=== PATIENT | female | born 1985 | race Caucasian/White ===

== ENCOUNTER 2016-06-11 22:08 | Emergency (ER) | payer MEDICAID ==
[~2016-06-11] VITALS: Ht 157.5 cm; Wt 64.0 kg
[2016-06-11 22:50] VITALS: BP 109/81
--- NOTE | 2016-06-11 23:12 | NUR ---
PATIENT PRESENTS TO ED WITH RT EAR PAIN . PT STATES HAVING PAIN FOR 2 MONTHS . DENIES N/V/D; SKIN IS PINK/WARM/DRY; AAOX4 WITH EVEN AND STEADY GAIT; LUNGS CLEAR BL; HR EVEN AND REGULAR; PT DENIES ANY FEVER, CP, SOB, OR COUGH AT THIS TIME; PATIENT STATES PAIN OF 6/10 AT THIS TIME; VSS; PATIENT POSITIONED FOR COMFORT; HOB ELEVATED; BEDRAILS UP X2; BED DOWN. ER MD MADE AWARE OF PT STATUS.
--- NOTE | 2016-06-11 23:12 | NUR ---
PT TAKEN TO OF
--- NOTE | 2016-06-11 23:13 | NUR ---
Dr. Sims evaluating patient at bedside.
[2016-06-11 23:21] VITALS: BP 109/81
--- NOTE | 2016-06-11 23:21 | NUR ---
Patient discharged with v/s stable. Written and verbal after care instructions given and explained. Patient alert, oriented and verbalized understanding of instructions. Ambulatory with steady gait. All questions addressed prior to discharge. ID band removed. Patient advised to follow up with PMD. Rx of AUGMENTIN 875MG TABLET AND MEDROL 4MG TABLET given. Patient educated on indication of medication including possible reaction and side effects. Opportunity to ask questions provided and answered.
== END 2016-06-11 23:21 | disposition home or self-care (01) ==
LOC: MED 22:08
DX: H66.91 Otitis media, unspecified, right ear (principal); T70.0XXA Otitic barotrauma, initial encounter; X58.XXXA Exposure to other specified factors, initial encounter

== ENCOUNTER 2017-11-01 13:46 | Emergency (ER) | payer MEDICAID ==
[~2017-11-01] VITALS: Ht 160 cm; Wt 63.5 kg
[2017-11-01 13:55] VITALS: BP 108/63
--- NOTE | 2017-11-01 14:02 | NUR ---
PT AMBULATES TO BED 5
--- NOTE | 2017-11-01 14:04 | NUR ---
31/F BIB SELF C/O INTERMITENT LOWER ABD PAIN X 2DAYS . TYLENOL TAKEN 2 HOURS EXPORT ADMINISTRATOR. PMH: LYMPHOMA CANCER. DENIES N/V/D; SKIN IS PINK/WARM/DRY; AAOX4 WITH EVEN AND STEADY GAIT; LUNGS CLEAR BL; PT DENIES ANY FEVER, CP, SOB, OR COUGH AT THIS TIME; PATIENT STATES PAIN OF 8/10 AT THIS TIME. PATIENT POSITIONED FOR COMFORT; HOB ELEVATED; BEDRAILS UP X2; BED DOWN. ER MD MADE AWARE OF PT STATUS.
--- NOTE | 2017-11-01 15:13 | NUR ---
Patient being evaluated by DR CURRY at bedside.
[2017-11-01 15:25] LABS: BILIRUBIN,URINE NEGATIVE (NEGATIVE); BLOOD, URINE 1+ (NEGATIVE); COLOR,URINE YELLOW (YELLOW); LEUKOCYTE ESTERASE ,URINE 2+ (NEGATIVE); NITRITE, URINE NEGATIVE (NEGATIVE); UGLUCOSE NEGATIVE (NEGATIVE)
[2017-11-01 15:31] LABS: APPEARANCE,URINE SLIGHTLY CLOUDY (CLEAR)
[2017-11-01 15:37] LABS: RBC,URINE 11-20 (MOD) /HPF (0-5); WBC,URINE 16-25 (MOD) /HPF (0-5)
[2017-11-01 15:38] VITALS: BP 106/61
== END 2017-11-01 15:38 | disposition home or self-care (01) ==
LOC: MED 13:46
DX: R10.30 Lower abdominal pain, unspecified (principal); Z85.72 Personal history of non-Hodgkin lymphomas; Z91.041 Radiographic dye allergy status
CPT/HCPCS: 81001; 81025; 87086; 99284

== ENCOUNTER 2019-12-18 09:40 | Emergency (ER) | payer MEDICAID ==
[~2019-12-18] VITALS: Ht 154.9 cm; Wt 61.7 kg
[2019-12-18 09:47] VITALS: BP 129/83
--- NOTE | 2019-12-18 09:50 | NUR ---
DR. VASQUEZ EVALUATING PT AT BEDSIDE
[2019-12-18] MEDS ORDERED: diazePAM 5 MG TAB PO STA (09:53)
--- NOTE | 2019-12-18 10:00 | NUR ---
33/F c/o achy muscles in neck and mild throat discomfort with swallowing x 3 days. States unable to turn neck side to side. Has experienced similar symptoms in the past and was told by doctor that it is due to patient having too much stress. VSS. NAD. PMH: lymphoma in remission
--- NOTE | 2019-12-18 10:39 | NUR ---
DR. VASQUEZ SPEAKING WITH PT AT BEDSIDE
[2019-12-18 10:57] VITALS: BP 129/83
--- NOTE | 2019-12-18 10:57 | NUR ---
Patient discharged with v/s stable. Written and verbal after care instructions given and explained. Patient alert, oriented and verbalized understanding of instructions. Ambulatory with steady gait. All questions addressed prior to discharge. ID band removed. Patient advised to follow up with PMD. Rx of VALIUM given. Patient educated on indication of medication including possible reaction and side effects. Opportunity to ask questions provided and answered.
== END 2019-12-18 10:57 | disposition home or self-care (01) ==
LOC: MED 09:40
DX: M54.2 Cervicalgia (principal); C85.90 Non-Hodgkin lymphoma, unspecified, unspecified site
CPT/HCPCS: 99283

== ENCOUNTER 2020-04-30 19:14 | Emergency (ER) | payer MEDICAID ==
[~2020-04-30] VITALS: Ht 162.6 cm; Wt 66.2 kg
[2020-04-30 19:29] VITALS: BP 110/84
--- NOTE | 2020-04-30 19:30 | NUR ---
TO LOBBY A/W BED AMBULATORY
--- NOTE | 2020-04-30 22:18 | NUR ---
PT AMBULATED TO BED #2
--- NOTE | 2020-04-30 22:18 | NUR ---
TO BED 2 AMBULATORY WITH C/O NECK PAIN. PT STATES THIS IS THE 3RD TIME AND "THE DRS SAY ITS CAUSED BY STRESS". DENIES TRAUMA. GUARDED ROM NOTED. PAIN RATED 9/10 PMH : CANCER; LYMPHOMA ALLERGY: IV CONTRAST
[2020-04-30] MEDS ORDERED: KETOROLAC 60 MG/2 ML VIAL IM ONE (22:40)
[2020-04-30] MEDS ORDERED: diazePAM 5 MG TAB PO ONE (22:40)
[2020-04-30 23:10] VITALS: BP 110/84
--- NOTE | 2020-04-30 23:10 | NUR ---
Patient discharged with v/s stable. Written and verbal after care instructions given and explained. Patient alert, oriented and verbalized understanding of instructions. Ambulatory with steady gait. All questions addressed prior to discharge. ID band removed. Patient advised to follow up with PMD. Rx of CYCLOBENZAPRINE, TYLENOL given. Patient educated on indication of medication including possible reaction and side effects. Opportunity to ask questions provided and answered.
== END 2020-04-30 23:10 | disposition home or self-care (01) ==
LOC: MED 19:14
DX: R25.2 Cramp and spasm (principal); M54.2 Cervicalgia
CPT/HCPCS: 96372; 99283; J1885

== ENCOUNTER 2020-08-16 08:11 | Emergency (ER) | payer MEDICAID ==
[~2020-08-16] VITALS: Ht 157.5 cm; Wt 73.0 kg
[2020-08-16 08:13] VITALS: BP 120/70
[2020-08-16] MEDS ORDERED: KETOROLAC 60 MG/2 ML VIAL IM ONE (08:40)
[2020-08-16 09:12] VITALS: BP 120/70
== END 2020-08-16 09:15 | disposition home or self-care (01) ==
LOC: MED 08:11
DX: R51.9 Headache, unspecified (principal); Z85.72 Personal history of non-Hodgkin lymphomas
CPT/HCPCS: 96372; 99283; J1885

== ENCOUNTER 2022-02-15 20:29 | Emergency (ER) | payer MEDICAID ==
[~2022-02-15] VITALS: Ht 157.5 cm; Wt 63.5 kg
[2022-02-15 21:43] VITALS: BP 125/54
[2022-02-15] MEDS ORDERED: ACETAMINOPHEN 325 MG TAB PO ONE (22:00)
[2022-02-15] MEDS ORDERED: BENZ200C4 PO (23:54)
[2022-02-15] MEDS ORDERED: LID5T TP (23:54)
[2022-02-15] MEDS ORDERED: IBUP-2213 PO (23:54)
[2022-02-16 00:09] VITALS: BP 125/54
--- NOTE | 2022-02-16 00:09 | NUR ---
Patient discharged with v/s stable. Written and verbal after care instructions given and explained. Patient alert, oriented and verbalized understanding of instructions. Ambulatory with steady gait. All questions addressed prior to discharge. ID band removed. Patient advised to follow up with PMD. Rx of BENZONATATE, IBUPROFEN, LIDODERM given. Patient educated on indication of medication including possible reaction and side effects. Opportunity to ask questions provided and answered.
== END 2022-02-16 00:09 | disposition home or self-care (01) ==
LOC: MED 20:29
DX: J10.1 Influenza due to other identified influenza virus with other respiratory manifestations (principal); Z20.822 Contact with and (suspected) exposure to COVID-19
CPT/HCPCS: 99283

== ENCOUNTER 2022-10-22 16:44 | Emergency (ER) | payer MEDICAID ==
[~2022-10-22] VITALS: Ht 154.9 cm; Wt 68.7 kg
[~2022-10-22 16:44] MED LIST: BENZ200C4 PO; IBUP-2213 PO; LID5T TP
[2022-10-22 17:18] VITALS: BP 115/68; PULSE 82; RESP 20; TEMP 98.2; O2SAT 100
[2022-10-22] MEDS ORDERED: LIDOCAINE MPF 1% 10 MG/ML VIAL INJ ONE (19:05)
[2022-10-22 19:30] VITALS: BP 115/68; PULSE 82; RESP 20; TEMP 98.2; O2SAT 100
[2022-10-22] MEDS ORDERED: BACITRACIN OINT 500 UNITS/GM PKT TP ONE (19:45)
--- NOTE | 2022-10-22 20:10 | NUR ---
Patient discharged. Written and verbal after care instructions given and explained. Patient verbalized understanding. Ambulatory with steady gait. All questions addressed prior to discharge. Advised to follow up with PMD.
== END 2022-10-22 20:10 | disposition home or self-care (01) ==
LOC: MED 16:44
DX: S51.811A Laceration without foreign body of right forearm, initial encounter (principal); W26.8XXA Contact with other sharp object(s), not elsewhere classified, initial encounter; Y93.89 Activity, other specified; Y92.89 Other specified places as the place of occurrence of the external cause; Y99.8 Other external cause status
CPT/HCPCS: 12002; 99282; J2001

== ENCOUNTER 2022-10-24 09:58 | Emergency (ER) | payer MEDICAID ==
[~2022-10-24] VITALS: Ht 160 cm; Wt 68.0 kg
[2022-10-24 10:13] VITALS: BP 124/80; PULSE 100; RESP 20; TEMP 98.3; O2SAT 99
[2022-10-24] MEDS ORDERED: IBUP-2213 PO (10:16)
== END 2022-10-24 10:59 | disposition home or self-care (01) ==
LOC: MED 09:58
DX: S51.011D Laceration without foreign body of right elbow, subsequent encounter (principal); Z85.72 Personal history of non-Hodgkin lymphomas; Z79.899 Other long term (current) drug therapy; X58.XXXD Exposure to other specified factors, subsequent encounter
CPT/HCPCS: 99282

== ENCOUNTER 2022-10-30 18:07 | Emergency (ER) | payer MEDICAID ==
[~2022-10-30] VITALS: Ht 157.5 cm; Wt 69.9 kg
[2022-10-30 18:32] VITALS: BP 117/85; PULSE 78; RESP 16; TEMP 98.5; O2SAT 98
[2022-10-30 19:02] VITALS: BP 117/85; PULSE 78; RESP 16; TEMP 98.5; O2SAT 98
== END 2022-10-30 19:02 | disposition home or self-care (01) ==
LOC: MED 18:07
DX: S51.011D Laceration without foreign body of right elbow, subsequent encounter (principal); Z48.02 Encounter for removal of sutures; Z79.899 Other long term (current) drug therapy; Z79.1 Long term (current) use of non-steroidal anti-inflammatories (NSAID); X58.XXXD Exposure to other specified factors, subsequent encounter
CPT/HCPCS: 99281

== ENCOUNTER 2023-08-31 17:07 | Emergency (ER) | payer MEDICAID, OTHER ==
[~2023-08-31] VITALS: Ht 162.6 cm; Wt 68.5 kg
[2023-08-31 17:29] VITALS: BP 106/82; PULSE 87; RESP 16; TEMP 98.4; O2SAT 98
[2023-08-31] MEDS ORDERED: DICL20GE TP (19:42)
== END 2023-08-31 20:02 | disposition home or self-care (01) ==
LOC: MED 17:07
DX: M25.521 Pain in right elbow (principal); Z85.72 Personal history of non-Hodgkin lymphomas; Z79.1 Long term (current) use of non-steroidal anti-inflammatories (NSAID); Z79.899 Other long term (current) drug therapy
CPT/HCPCS: 73080; 99283

== ENCOUNTER 2023-10-12 01:35 | Inpatient (IN) | payer OTHER ==
[~2023-10-12] VITALS: Ht 162.6 cm; Wt 68.0 kg
[~2023-10-12 01:35] MED LIST changes: +DICL20GE TP
[2023-10-12 01:41] VITALS: BP 132/69; PULSE 69; RESP 20; TEMP 97.5
[2023-10-12 02:12] LABS: BASOPHILS # (AUTO) 0.1 K/uL (0.00-0.22); BASOPHILS % (AUTO) 0.5 % (0.0-2.0); EOSINOPHILS # (AUTO) 0.3 K/uL (0-0.4); HEMATOCRIT 37.8 % (36-48); HEMOGLOBIN 13.1 g/dL (12.0-16.0); LYMPHOCYTES % (AUTO) 19.7 % (20.5-51.1); MEAN CORPUSCULAR HEMOGLOBIN 30 pg (27-31); MEAN CORPUSCULAR HGB CONC 35 g/dL (33-37); MONOCYTES % (AUTO) 9.7 % (1.7-9.3); NEUTROPHILS # (AUTO) 6.7 K/uL (1.8-7.7); NEUTROPHILS % (AUTO) 67.1 % (42.2-75.2); PLATELET COUNT (AUTO) 261 K/uL (140-450); RED BLOOD CELL COUNT(AUTO) 4.44 MIL/uL (4.20-5.40); RED CELL DISTRIBUTION WIDTH 13.7 % (11.6-13.7); WHITE BLOOD COUNT (AUTO) 10.1 K/uL (4.8-10.8)
[2023-10-12 02:24] LABS: APPEARANCE,URINE CLEAR (CLEAR); BILIRUBIN,URINE NEGATIVE (NEGATIVE); BLOOD, URINE TRACE-I (NEGATIVE); COLOR,URINE YELLOW (YELLOW); LEUKOCYTE ESTERASE ,URINE 1+ (NEGATIVE); NITRITE, URINE NEGATIVE (NEGATIVE); PROTEIN,URINE NEGATIVE (NEGATIVE); UGLUCOSE NEGATIVE (NEGATIVE); UROBILINOGEN,URINE 0.2 EU/dL (0.2 - 1)
[2023-10-12 02:25] LABS: ANION GAP 11.8 (8-16); CALCIUM 9.1 mg/dL (8.5-10.1); CARBON DIOXIDE 25.6 mmol/L (21-32); CREATININE 0.7 mg/dL (0.6-1.3); POTASSIUM 3.4 mmol/L (3.5-5.1)
[2023-10-12 02:27] LABS: BACTERIA,URINE >30 (MANY) /HPF (None Seen)
[2023-10-12 02:28] LABS: MUCUS,URINE 1+ /LPF (None Seen)
[2023-10-12 02:30] LABS: ALBUMIN 3.7 g/dL (3.4-5.0); BILIRUBIN,DIRECT 0.1 mg/dL (0.0-0.3); TOTAL BILIRUBIN 0.4 mg/dL (0.0-1.0); TOTAL PROTEIN, SERUM 7.3 g/dL (6.4-8.2)
[2023-10-12] MEDS: KETOROLAC 60 MG/2 ML VIAL IM ONE (02:33)
[2023-10-12] MEDS ORDERED: cefTRIAXone 1,000 MG VIAL ONE (03:41)
[2023-10-12] MEDS: PIPERACILLIN/TAZOBACTAM 3.375 GM in DEXTROSE 5% 50 ML IV SCH (03:45)
[2023-10-12] MEDS ORDERED: ACETAMINOPHEN 325 MG TAB PO PRN (03:55)
[2023-10-12] MEDS ORDERED: LORazepam 1 MG TAB PO PRN (03:55)
[2023-10-12] MEDS ORDERED: ZOLPIDEM 5 MG TAB PO PRN (03:55)
[2023-10-12] MEDS: DEXT 5% /NACL 0.9% 1,000 ML IV SCH (03:55)
[2023-10-12] MEDS ORDERED: KCL 20 MEQ IN 100 mL PREMIX 200 ML IV PRN (03:55)
[2023-10-12] MEDS ORDERED: POTASSIUM CHLORIDE 10 MEQ TABER PO PRN (03:55)
[2023-10-12] MEDS ORDERED: ONDANSETRON 4 MG/2 ML VIAL IVP PRN ×2 (03:55→16:05)
[2023-10-12] MEDS ORDERED: MORPHINE SULFATE 4 MG/ML SYR IVP PRN (03:55)
[2023-10-12 04:42] LABS: LACTIC ACID 1.1 mmol/L (0.4-2.0)
[2023-10-12] MEDS ORDERED: PIPERACILLIN/TAZOBACTAM 3.375 GM VIAL IV ONE ×2 (04:47→12:05)
[2023-10-12] MEDS: NACL 0.9% 1,000 ML IV STA ×2 (04:50→05:01)
[2023-10-12] MEDS ORDERED: PIPERACILLIN/TAZOBACTAM 3.375 GM in DEXTROSE 5% 50 ML IV SCH (06:00)
[2023-10-12 06:33] LABS: BASOPHILS # (AUTO) 0.1 K/uL (0.00-0.22); BASOPHILS % (AUTO) 0.7 % (0.0-2.0); EOSINOPHILS # (AUTO) 0.2 K/uL (0-0.4); EOSINOPHILS % (AUTO) 1.7 % (0.0-4.0); HEMATOCRIT 37.6 % (36-48); LYMPHOCYTES # (AUTO) 1.9 K/uL (2.5-16.5); LYMPHOCYTES % (AUTO) 18.4 % (20.5-51.1); MEAN CORPUSCULAR HEMOGLOBIN 29 pg (27-31); MEAN CORPUSCULAR HGB CONC 35 g/dL (33-37); MONOCYTES # (AUTO) 0.7 K/uL (0.8-1.0); MONOCYTES % (AUTO) 6.4 % (1.7-9.3); NEUTROPHILS # (AUTO) 7.5 K/uL (1.8-7.7); NEUTROPHILS % (AUTO) 72.8 % (42.2-75.2); PLATELET COUNT (AUTO) 249 K/uL (140-450); RED BLOOD CELL COUNT(AUTO) 4.42 MIL/uL (4.20-5.40); RED CELL DISTRIBUTION WIDTH 13.7 % (11.6-13.7); WHITE BLOOD COUNT (AUTO) 10.3 K/uL (4.8-10.8)
[2023-10-12 07:18] LABS: ANION GAP 14.8 (8-16); CALCIUM 8.5 mg/dL (8.5-10.1); CARBON DIOXIDE 22.2 mmol/L (21-32); CREATININE 0.8 mg/dL (0.6-1.3)
[2023-10-12] MEDS: MEDS-TO-BEDS MC SCH (09:00)
[2023-10-12] MEDS: HYDROcodone/APAP 5/325 MG 1 TAB TAB PO PRN (12:09)
[2023-10-12] MEDS: fentaNYL citrate 0.05 MG/ML VIAL ONE (14:46)
[2023-10-12] MEDS ORDERED: SEVOFLURANE 250 ML BTL INH ONE (14:50)
[2023-10-12] MEDS: HYDROmorphone PFS 2 MG/ML SYR ONE (15:07)
[2023-10-12] MEDS: ROCURONIUM 50 MG/5 ML VIAL IV ONE (15:22)
[2023-10-12] MEDS: DEXAMETHASONE 4 MG/ML VIAL ONE (15:22)
[2023-10-12] MEDS: SUCCINYLCHOLINE CHLORIDE 200 MG/10 ML VIAL IVP ONE (15:22)
[2023-10-12] MEDS: ePHEDrine 50 MG/ML VIAL ONE (15:22)
[2023-10-12] MEDS: METOCLOPRAMIDE 10 MG/2 ML INJ VIAL ONE (15:22)
[2023-10-12] MEDS: ONDANSETRON 4 MG/2 ML VIAL ONE (15:22)
[2023-10-12] MEDS: PROPOFOL 200 MG/20 ML VIAL IV ONE (15:22)
[2023-10-12] MEDS: GLYCOPYRROLATE 0.2 MG/ML VIAL ONE ×2 (15:26)
[2023-10-12] MEDS: NEOSTIGMINE 1:1000 10 MG/10 ML VIAL ONE ×2 (15:26)
[2023-10-12] MEDS: BUPIVACAINE-MPF 0.25% 30 ML VIAL INJ ONE (15:28)
[2023-10-12] MEDS: LIDOCAINE/EPI 1% 1:100000 20 ML VIAL INJ ONE (15:28)
[2023-10-12] MEDS ORDERED: HYDROmorphone 1 MG/ML AMP IVP PRN (16:05)
[2023-10-12] MEDS ORDERED: MEPERIDINE 25 MG/ML SYR IVP PRN (16:05)
[2023-10-12 16:40] VITALS: BP 106/75; PULSE 81; RESP 18; TEMP 97.9; O2SAT 99
[2023-10-12 20:00] VITALS: BP 100/62; PULSE 94; RESP 18; TEMP 98.8; O2SAT 96
[2023-10-13 04:00] VITALS: BP 91/59; PULSE 66; RESP 18; TEMP 97.6; O2SAT 100
[2023-10-13 07:21] LABS: LYMPHOCYTES # (AUTO) 1.1 K/uL (2.5-16.5); MEAN CORPUSCULAR HEMOGLOBIN 29 pg (27-31); MEAN CORPUSCULAR HGB CONC 34 g/dL (33-37); MEAN CORPUSCULAR VOLUME 84.8 fL (80-94); MONOCYTES # (AUTO) 0.5 K/uL (0.8-1.0); MONOCYTES % (AUTO) 5.5 % (1.7-9.3); NEUTROPHILS # (AUTO) 8.3 K/uL (1.8-7.7); NEUTROPHILS % (AUTO) 83.5 % (42.2-75.2); PLATELET COUNT (AUTO) 241 K/uL (140-450); RED BLOOD CELL COUNT(AUTO) 4.13 MIL/uL (4.20-5.40); RED CELL DISTRIBUTION WIDTH 13.7 % (11.6-13.7)
[2023-10-13 07:31] LABS: ANION GAP 12.6 (8-16); CALCIUM 8.1 mg/dL (8.5-10.1); CARBON DIOXIDE 22.9 mmol/L (21-32); CREATININE 0.6 mg/dL (0.6-1.3); POTASSIUM 3.5 mmol/L (3.5-5.1)
[2023-10-13 08:00] VITALS: PULSE 71; PULSE 81; RESP 18; O2SAT 99
[2023-10-13] MEDS ORDERED: ACET-8905 PO (11:57)
[2023-10-13 14:51] VITALS: BP 94/51; PULSE 71; RESP 18; TEMP 97.9
== END 2023-10-13 16:36 | disposition home or self-care (01) | DRG 234 ==
LOC: MED 01:35 → MMU 03:56 → MTU 17:02
PROVIDERS: ADMIT Internal Medicine; ATTEND Internal Medicine
PROC: 0DTJ4ZZ Resection of Appendix, Percutaneous Endoscopic Approach (ICD-10-PCS; principal; 2023-10-12 14:00)
DX: K35.80 Unspecified acute appendicitis (principal); N39.0 Urinary tract infection, site not specified; Z85.72 Personal history of non-Hodgkin lymphomas; Z91.041 Radiographic dye allergy status
CPT/HCPCS: 36415; 80048; 80076; 81001; 82150; 83605; 83690; 84703; 85025; 87040; 87081; 87086; 87186; 88304; 96361; 96365; 96372; 99285; J0330; J0696; J1100; J1170; J1885; J2001; J2405; J2543; J2704; J2710; J2765; J3010; J3490; J7030; J7060